=== PATIENT | female | born 1965 | race Two or more races ===

== ENCOUNTER 2023-12-15 19:27 | Emergency (ER) | payer MEDICAID, OTHER ==
[~2023-12-15] VITALS: Ht 167.6 cm; Wt 83.2 kg
[2023-12-15] MEDS: cloNIDine HCL 0.1 MG TAB PO ONE (20:27)
[2023-12-15 20:29] VITALS: PULSE 76; RESP 16; O2SAT 96
[2023-12-15] MEDS: KETOROLAC TROMETH 30 MG/ML 1ML VIAL IM ONE (20:33)
[2023-12-15 20:54] LABS: Urine Bacteria FEW /hpf (None Seen); Urine Blood Negative /uL (Negative); Urine Clarity Clear (Clear); Urine Color Colorless (Yellow); Urine Protein, UAD Negative (Negative); Urine Specific Gravity 1.004 (1.001-1.035); Urine Urobilinogen Normal (Negative); Urine WBC <1 /hpf (0 - 5)
[2023-12-15 23:37] VITALS: BP 149/87; PULSE 72; RESP 16; O2SAT 94
[2023-12-15] MEDS ORDERED: GABA-1250 PO (23:57)
[2023-12-15] MEDS ORDERED: CLON0.2T PO (23:57)
== END 2023-12-16 | disposition home or self-care (01) ==
LOC: ER 19:27
DX: G62.9 Polyneuropathy, unspecified (principal); I16.0 Hypertensive urgency; I10 Essential (primary) hypertension; Z88.0 Allergy status to penicillin
CPT/HCPCS: 72040; 81001; 96372; 99284; J1885